=== PATIENT | female | born 1950 | race American Indian/Alaskan Native ===

== ENCOUNTER → 2017-03-20 | Outpatient (CLI) | payer OTHER ==
--- NOTE | 2017-03-20 13:16 | KCIC ---
Bone mineral density study dated 03/20/2017. Indication: Postmenopausal screening. Findings: Lower lumbar spine: BMD (g/cm2): Total L1-L4.......... 0.828. . T-Score: Total L1-L4.................... -2.0. Z-Score: Total L1-L4 ................... 0.0. Left Hip: BMD (g/cm2): Total .......... 0.87. . T-Score: Total .................... -0.5. Z-Score: Total ................... 0.8. World Health Organization criteria for BMD interpretation classify patients as Normal (T-score at or above -1.0), Osteopenic (T-score between -1.0 and -2.5), or Osteoporotic (T-score at or below -2.5). Impression: 1. Bone mineral density values of the lower lumbar spine correlate with osteopenia. The values of the left femur are within the range of normal. Electronically signed by: Julio C Brunner MD (03/20/2017 1:13 PM) [email or web address]
--- NOTE | 2017-03-20 14:18 | KCIC ---
Two-view right hip dated 03/20/2017. No comparison available. Clinical indication: Right hip pain. FINDINGS: 2 views right hip show normal bony alignment. No displaced fracture. No acute osseous or articular mallet. Mild hypertrophic change of the right hip joint. IMPRESSION: No acute radiographic abnormality. Electronically signed by: Julio C Brunner MD (03/20/2017 2:16 PM) [email or web address]
--- NOTE | 2017-03-21 12:42 | RAD ---
DATE: 03/20/2017 EXAM: MAMMO YORDAN SCREENING BILATERAL HISTORY: Routine screening COMPARISON: 07/01/2013, 10/26/2012 The breast parenchyma shows scattered fibroglandular densities. Breast parenchyma level B. FINDINGS: 2-D and 3-D tomosynthesis imaging was performed in CC and MLO projections. No new or enlarging breast densities are seen. Benign type calcifications are present in both breasts. There are small smooth benign-appearing lymph node type densities in the left axillary tail region. IMPRESSION: There is no mammographic evidence of malignancy in either breast. BI-RADS CATEGORY: 2 BENIGN FINDING(S) RECOMMENDED FOLLOW-UP: 12M 12 MONTH FOLLOW-UP PQRS compliance statement: Patient information was entered into a reminder system with a target due date for the next mammogram. Mammography is a sensitive method for finding small breast cancers, but it does not detect them all and is not a substitute for careful clinical examination. A negative mammogram does not negate a clinically suspicious finding and should not result in delay in biopsying a clinically suspicious abnormality. "Our facility is accredited by the [employer] Mammography Program."
== END | disposition home or self-care (01) ==
LOC: KCIC DEXA 12:38
PROVIDERS: ATTEND Internal Medicine
DX: Z12.31 Encounter for screening mammogram for malignant neoplasm of breast (principal); M25.551 Pain in right hip
CPT/HCPCS: 73502; 77063; 77080; G0202; 77067

== ENCOUNTER → 2017-07-28 | Outpatient (CLI) | payer OTHER ==
[2017-07-28 14:49] LABS: BASO % 0 % (0-3); EOS % 2 % (0-3); HEMATOCRIT 38.6 % (36.0-47.0); HEMOGLOBIN 12.7 g/dL (12.0-15.5); LYMPH # 3.9 x10^3/uL (1.0-4.8); LYMPH % 29 % (24-48); MEAN CORPUSCULAR HEMOGLOBIN 29 pg (25-35); MEAN CORPUSCULAR HGB CONC 33 g/dL (31-37); MEAN CORPUSCULAR VOLUME 87 fL (79-100); MONO % 5 % (0-9); NEUT % 63 % (31-73); PLATELET COUNT 266 x10^3/uL (140-400); RED BLOOD COUNT 4.43 x10^6/uL (3.50-5.40); RED CELL DISTRIBUTION WIDTH 14.6 % (11.5-14.5); WHITE BLOOD COUNT 13.6 x10^3/uL (4.0-11.0)
[2017-07-28 15:20] LABS: ALBUMIN 3.6 g/dL (3.4-5.0); ALBUMIN/GLOBULIN RATIO 0.9 (1.0-1.7); CALCIUM 8.2 mg/dL (8.5-10.1); CREATININE 0.8 mg/dL (0.6-1.0); GFR 71.3; POTASSIUM 3.5 mmol/L (3.5-5.1); TOTAL BILIRUBIN 0.2 mg/dL (0.2-1.0); TOTAL PROTEIN 7.5 g/dL (6.4-8.2)
== END | disposition home or self-care (01) ==
LOC: LAB 14:29
PROVIDERS: ATTEND Internal Medicine
DX: G47.00 Insomnia, unspecified (principal)
CPT/HCPCS: 36415; 80053; 82550; 82607; 83519; 83520; 84443; 85025; 86141; 84238